=== PATIENT | male | born 1945 | race Caucasian/White ===

== ENCOUNTER → 2023-06-01 07:21 | Outpatient (REF) | payer MEDICARE, OTHER, SELFPAY | LOC: RAD 07:21 | PROVIDERS: ATTENDING PHYSICIAN Family Medicine | DX: S16.1XXA Strain of muscle, fascia and tendon at neck level, initial encounter (principal) | CPT/HCPCS: 72050 ==

== ENCOUNTER 2023-08-17 06:39 | Day surgery (SDC) | payer MEDICARE, OTHER, SELFPAY ==
[2023-08-17 10:12] VITALS: BP 146/71; BMI 31.2
[2023-08-17] MEDS: TYLENOL 1000 MG PO (10:32)
[2023-08-17] MEDS: NORMOSOL-R 1000 IV (10:33)
[2023-08-17 12:13] VITALS: BP 121/92
[2023-08-17 12:15] VITALS: BP 114/73
--- NOTE | 2023-08-17 12:17 | W.IMMPOSTOP ---
Surgical Immed Post Op Note
-
Primary Surgeon: Kael Montgomery MD
Assisting Surgeon: None
Pre-op Diagnosis: Sebaceous cyst, left back
Post-op Diagnosis: Infected sebaceous cyst, left back
Procedure Performed: Excision of a sebaceous cyst, left back
Anesthesia Type: General
Specimen / Cultures:
1. Sebaceous cyst
2. Cyst fluid/abscess for Gram stain and culture.
Estimated Blood Loss: 1 cc
Complications: None
Operative Findings: 2 x 2 x 2 cm sebaceous cyst of the left back identified and removed entirely. Part of the capsule was violated with some notable pus that was cultured. The wound was copiously irrigated and closed in layers. The skin was
closed with Steri-Strips and covered with a nonocclusive dressing to allow for drainage.
--- NOTE | 2023-08-17 12:20 | OR.RPT ---
Operative Report
Operative Report
Patient Name: Xu Spencer
: 1945
Date of Operation: 08/17/2023
Preoperative Diagnosis: Sebaceous cyst of the left back
Postoperative Diagnosis: Infected sebaceous cyst of the left back
Procedure(s):
Excision of left back sebaceous cyst
Surgeon(s):
Dr. Montgomery
Assistant Hairstylist(s):
MARLEE Conley
Anesthesia: MAC
Estimated Blood Loss: 1 cc
Urine Output: None
Drains/Lines/Implants: None
Specimens:
1. Sebaceous cysts.
2. Cyst fluid/abscess for Gram stain and culture.
Indication for surgery:
This is a 78-year-old male with a lump on his back that he is known for several years. After evaluation in the office he was diagnosed with a sebaceous cyst. After discussion of risk benefits and alternatives he elected and was consented for
surgery.
Operative Findings: 2 x 2 x 2 cm sebaceous cyst of the left back identified and removed entirely. Part of the capsule was violated with some notable pus that was cultured. The wound was copiously irrigated and closed in layers. The skin was
closed with Steri-Strips and covered with a nonocclusive dressing to allow for drainage.
Details of the operation:
The patient was brought to the operating room a placed in the prone position. After appropriate sedation by anesthesia, the area of the back was prepped and draped in the usual fashion. An elliptical incision over natural skin lines was made over
the mass and carried down through the subcutaneous tissue. The cyst was freed circumferentially from the surrounding tissue. Part of the capsule was violated with some spillage of purulent appearing fluid. This was cultured. The specimen
measured roughly 2 x 2 x 2 cm and extended to Calderon's fascia. The final wound dimensions were roughly 3.5 x 2 x 2 cm. The wound was copiously irrigated and due to the possible contamination, we had anesthesia administer 2 g of IV Ancef. The
wound was then closed in layers with 3-0 Vicryl's starting with the Calderon layer, then deep dermals followed by interrupted subdermals. The wound was then dressed with Steri-Strips followed by a 4 x 4 and paper tape. All counts were correct at the
end of procedure. The patient was then transferred to the PACU for recovery.
I was the attending physician and performed the procedure with assistance from the DISPATCHER CHIEF OIL above. I was present for all portions of the case
Kael Montgomery MD
[2023-08-17 12:30] VITALS: BP 124/93
[2023-08-17 12:54] VITALS: BP 122/68
--- NOTE | 2023-08-23 17:11 | W.SUR.PREOP ---
Pre-Operative Surgical Note
-
I have examined this patient prior to the performance of the scheduled procedure.
The patient's condition is unchanged from the time of the current History and
Physical and the patient is able to undergo the scheduled procedure.
== END 2023-08-17 13:13 | disposition home or self-care (01) ==
LOC: SDS 06:39
PROVIDERS: ATTENDING PHYSICIAN Surgery
DX: L72.3 Sebaceous cyst (principal)
CPT/HCPCS: 11404; 12032; 88304; 87070; 87075; 87147; 87205

== ENCOUNTER → 2024-06-07 14:13 | Outpatient (REF) | payer MEDICARE, OTHER, SELFPAY ==
[2024-06-07 14:52] LABS: % Basophils 0.5 % (0-2); % Immature Granulocytes 0.3 % (0-0.5); % Lymphocytes 28.7 % (20.5-51.1); % Monocytes 10.3 % (1.7-9.3); % Neutrophils 59.2 % (42.2-75.2); Absolute Eosinophils 0.1 10^3/uL (0-0.7); Absolute Lymphocytes 2.2 10^3/uL (1.2-3.4); Absolute Monocytes 0.8 10^3/uL (0.1-0.6); Absolute Neutrophils 4.6 10^3/uL (1.4-6.5); Hematocrit 43.4 % (39.0-52.0); Hemoglobin 14.5 g/dL (13.0-18.0); Mean Corp Hgb Conc. 33.4 g/dL (33.0-37.0); Mean Corpuscular Hgb 32.2 pg (27.0-31.0); Mean Corpuscular Volume 96.2 fL (80.0-94.0); Mean Platelet Volume 8.9 fL (7.4-10.4); Nucleated Red Blood Cells % 0 % (-); Platelet Count 221 10^3/uL (130-400); Red Blood Cell Count 4.51 10^6/uL (4.70-6.10); Red Cell Dist. Width 13.6 % (11.5-14.5); White Blood Cell Count 7.8 10^3/uL (4.8-10.8)
[2024-06-07 15:17] LABS: ALT (SGPT) 50 U/L (0-50); AST (SGOT) 30 U/L (17-59); Albumin 3.9 g/dl (3.5-5.0); Alkaline Phosphatase 85 U/L (38-126); Blood Urea Nitrogen 9 mg/dl (9-20); Calcium 9.2 mg/dl (8.4-10.2); Carbon Dioxide 29 mmol/L (22-30); Chloride 105 mmol/L (98-107); Glucose 88 mg/dl (70-99); Potassium 4.4 mmol/L (3.5-5.1); Sodium 140 mmol/L (135-145); Total Bilirubin 0.6 mg/dl (0.2-1.3); Total Protein 6.7 g/dl (6.3-8.2); eGFR > 60.00
== END ==
LOC: RAD 14:13
PROVIDERS: ATTENDING PHYSICIAN Hospitalist
DX: R10.12 Left upper quadrant pain (principal)
CPT/HCPCS: 36415; 74177; 80053; 85025; Q9967

== ENCOUNTER → 2024-12-11 12:31 | Outpatient (REF) | payer MEDICARE, OTHER, SELFPAY | LOC: RAD 12:31 | PROVIDERS: ATTENDING PHYSICIAN Hospitalist | DX: R31.29 Other microscopic hematuria (principal) | CPT/HCPCS: 76770 ==

== ENCOUNTER → 2025-01-21 08:40 | Outpatient (REF) | payer MEDICARE, OTHER, SELFPAY ==
[2025-01-21 09:40] LABS: Blood Urea Nitrogen 11 mg/dl (9-20); Calcium 10.0 mg/dl (8.4-10.2); Carbon Dioxide 32 mmol/L (22-30); Chloride 106 mmol/L (98-107); Glucose 100 mg/dl (70-99); Potassium 4.3 mmol/L (3.5-5.1); Sodium 143 mmol/L (135-145); eGFR > 60.00
== END ==
LOC: REG 08:40
PROVIDERS: ATTENDING PHYSICIAN Urology; FAMILY PHYSICIAN Hospitalist
DX: N40.1 Benign prostatic hyperplasia with lower urinary tract symptoms (principal); Z01.818 Encounter for other preprocedural examination
CPT/HCPCS: 36415; 80048

== ENCOUNTER → 2025-01-28 06:58 | Outpatient (REF) | payer MEDICARE, OTHER, SELFPAY | LOC: MRI 3T 06:58 | PROVIDERS: ATTENDING PHYSICIAN Urology; FAMILY PHYSICIAN Hospitalist | DX: M54.2 Cervicalgia (principal); N40.1 Benign prostatic hyperplasia with lower urinary tract symptoms | CPT/HCPCS: 72141; 74178; Q9967 ==

== ENCOUNTER 2025-03-10 20:34 | Emergency (ER) | payer MEDICARE, OTHER, SELFPAY ==
[2025-03-10 20:37] VITALS: BP 150/82
[2025-03-10 22:00] VITALS: BMI 30.6
[2025-03-10 22:06] VITALS: BP 133/79
--- NOTE | 2025-03-10 22:35 | ED.GENMED ---
History of Present Illness
General
Chief Complaint: Head Injury
Source: patient and spouse
Time Seen by Provider: 03/10/25 21:57
History of Present Illness
History of Present Illness:
79-year-old male presents to the emergency room from MRI where he he had an MRI of the brain which was abnormal. He was referred to the emergency room because the study showed 'fluid collections'. Patient states he has been feeling unwell since a
fall back in October when he was playing pickle ball. He fell on his right side. He did strike his head. He does take Coumadin. After the fall he noted some pain behind his right eye and some subtle balance problems. He feels like he veers off
to the left which is not obvious to his spouse. However when he began again playing pickle ball again he noted that he kept falling forward and had balance issues. Patient takes Coumadin because he had 'TIAs' in the late . He has been on
Coumadin ever since. He has had some difficulty maintaining a therapeutic INR recently resulting in frequent dosage adjustments. He denies having a headache. He denies any nausea or vomiting. He is tolerating oral intake.
Phy Exam
Physical Exam
Physical Exam:
General: Awake, Alert, Oriented X3. No acute distress.
Vitals: unremarkable
Head: Atraumatic
Eyes: Pupils equal, EOMI
Throat: Airway intact, no exudates
Neck: Trachea midline
Lungs: Clear and equal b/l
Heart: Regular rate, no murmurs
Abd: Soft, Nontender, No pulsatile mass
Neuro: Cranial nerves intact, muscle strength equal bilaterally, cerebellar exam normal
Skin: Warm, dry, no rash
Extremities: pulses equal b/l, no edema
Course
Orders/Labs/Results
Orders:
Orders
03/10/25 22:44
Type+Screen Urgent
Basic Metabolic Panel Urgent
Complete Blood Count/With Diff Urgent
Prothrombin Time Urgent
Abnormal Lab Results
03/10/25
22:44
RBC 4.53 L 10^6/uL
(4.70-6.10)
MCH 31.3 H pg
(27.0-31.0)
Absolute Monos (auto) 0.7 H 10^3/uL
(0.1-0.6)
Monocytes % 10.6 H %
(1.7-9.3)
PT 26.4 H Sec
(11.4-14.6)
Glucose 101 H mg/dl
(70-99)
03/10/25 22:44
03/10/25 22:44
Vital Signs
Initial and Last Documented VS:
Initial Vital Signs
Temp Pulse Resp BP Pulse Ox
97.4 F 86 20 150/82 97
03/10/25 20:37 03/10/25 20:37 03/10/25 20:37 03/10/25 20:37 03/10/25 20:37
Last Documented Vital Signs
Temp Pulse Resp BP Pulse Ox
97.4 F 69 17 136/77 97
03/10/25 20:37 03/11/25 03:15 03/11/25 03:15 03/11/25 03:00 03/11/25 03:15
MDM/Problems Addressed
Differential Diagnosis Includes:
Subdural, of CVA, electrolyte abnormality
MDM/Problems Addressed:
Patient brought to the emergency room after having an outpatient MRI performed. MRI shows bilateral subdurals. There is mass effect. The subdurals appear to have chronic as well as subacute components. Patient does take Coumadin. INR is 2.1.
Discussed patient's presentation with Dr. Faye Gross who is on-call for neurosurgery. She recommends transfer to [place]. She does not recommend anticoagulation reversal at this time. Patient remained awake and alert and nonfocal hearing in the
emergency room. Patient was accepted in transfer to [place] under the trauma service, Dr. Zacarias.
*Radiology
Radiology exam reviewed: radiology read reviewed
*Pulse Oximetry
SaO2: 94
Oxygen Mode of Delivery: Room air
Patient hypoxic: no
*Critical Care Note
Total Time (30-74mins, 75-104mins- exclusive of procedures): 33 min
comment:
Critical care statement: A total of 33 minutes of critical care time was provided for this patient. This includes management of unstable vital signs, evaluation of the patient at bedside, reviewing the patient�s pertinent medical records, discussion
with consultants, review of old EKGs and review of pertinent medical records. This time with separate from time utilized to perform the aforementioned documented procedures
ED Attending Note
-
Portions of this chart may have been created with voice recognition software.� Occasional wrong word or��sound alike� substitutions may have occurred due to the inherent limitations of voice recognition software.
Discharge Plan
Departure
Patient Disposition: [facility]
Date of Disposition: 03/11/25
Time of Disposition: 00:40
Condition: Fair
Discharge Problem:
Subdural hematoma
Prescriptions:
No Action
atorvastatin 40 mg Tablet
40 mg PO QPM
tamsulosin 0.4 mg Capsule
0.4 mg PO DAILY
warfarin 5 mg Tablet
5 mg PO SUMOTUWETHSA
fluticasone propionate [Flonase Allergy Relief] 50 mcg/actuation [place],Suspension
1 spray INTRANASAL PRN PRN (Reason: nasal congestion)
acetaminophen [Tylenol Extra Strength] 500 mg Tablet
500 mg PO Q6H PRN (Reason: pain)
hogmpjgasgcb-ocnlnjee-ihjwti Tablet
1 tab PO DAILY
cholecalciferol (vitamin D3) [Vitamin D3] 25 mcg (1,000 unit) Tablet
25 mcg PO DAILY
PreserVision AREDS-2 250-90-40-1 mg Capsule
1 tab PO DAILY
Move Free Joint Health 750 mg-100 mg- 1.65 mg-108 mg Tablet
1 tab PO DAILY
amoxicillin-pot clavulanate 875-125 mg tablet
1 tab PO Q12 Qty: 8 0RF
Referrals:
Leena Romero MD [Family Provider, Internal Medicine]
Hospital Transfer
Other hospital: [facility]
I certify that the patient requires transfer: Yes
Discussed case with accepting physician: Dr. Frias
Reason for transfer: specialties available
Interventions
Interventions:
*General Assessment Last Done: 03/10/25 22:02
*Neglect/Abuse Screening Last Done: 03/10/25 20:37
*ED COVID-19 Vaccine History Last Done: 03/10/25 22:02
*ED Influenza Vaccine History Last Done: 03/10/25 22:02
[facility] Fall Risk Assessment Tool Last Done: 03/10/25 22:01
*Risk Screen - Suicide (C-SSRS) Last Done: 03/10/25 20:37
*Nursing Disposition Last Done: 03/11/25 03:59
ED- Neurological Assessment Last Done: 03/10/25 22:06
ED-Skin Assessment Last Done: 03/10/25 22:06
Discharge Date and Time
Discharge Date/Time: 03/11/25 04:00
Print Language: BELGIAN
[2025-03-10 23:01] LABS: Hematocrit 42.1 % (39.0-52.0); Hemoglobin 14.2 g/dL (13.0-18.0); Mean Corp Hgb Conc. 33.7 g/dL (33.0-37.0); Mean Corpuscular Volume 92.9 fL (80.0-94.0); Nucleated Red Blood Cells % 0 % (-); Platelet Count 217 10^3/uL (130-400); Red Cell Dist. Width 13.0 % (11.5-14.5)
[2025-03-10 23:06] LABS: INR 2.41; PT 26.4 Sec (11.4-14.6)
[2025-03-10 23:24] LABS: Blood Urea Nitrogen 9 mg/dl (9-20); Calcium 9.4 mg/dl (8.4-10.2); Carbon Dioxide 28 mmol/L (22-30); Chloride 106 mmol/L (98-107); Estimated Creatinine Clearance 87 ml/min; Glucose 101 mg/dl (70-99); Potassium 3.7 mmol/L (3.5-5.1); Sodium 138 mmol/L (135-145); eGFR > 60.00
[2025-03-10 23:45] VITALS: BP 148/82
[2025-03-11 00:27] VITALS: BP 168/87
[2025-03-11 01:00] VITALS: BP 155/82
[2025-03-11 02:00] VITALS: BP 126/72
[2025-03-11 03:00] VITALS: BP 136/77
== END 2025-03-11 04:00 | disposition short-term general hospital (02) ==
LOC: EMR 20:34
PROVIDERS: EMERGENCY PHYSICIAN Emergency Medicine; FAMILY PHYSICIAN Hospitalist
DX: S06.5XAA Traumatic subdural hemorrhage with loss of consciousness status unknown, initial encounter (principal); W19.XXXA Unspecified fall, initial encounter; Z86.73 Personal history of transient ischemic attack (TIA), and cerebral infarction without residual deficits; Z79.01 Long term (current) use of anticoagulants
CPT/HCPCS: 99291; 70553; 80048; 85025; 85610; 86850; 86900; 86901; A9575

== ENCOUNTER 2025-03-22 19:02 | Observation (INO) | payer MEDICARE, OTHER, SELFPAY ==
[2025-03-22 13:53] VITALS: BP 166/81
[2025-03-22 14:23] LABS: Hematocrit 40.9 % (39.0-52.0); Hemoglobin 14.0 g/dL (13.0-18.0); Mean Corp Hgb Conc. 34.2 g/dL (33.0-37.0); Mean Corpuscular Volume 94.5 fL (80.0-94.0); Nucleated Red Blood Cells % 0 % (-); Platelet Count 283 10^3/uL (130-400); Red Cell Dist. Width 12.6 % (11.5-14.5)
[2025-03-22 14:35] LABS: INR 1.00; PT 13.3 Sec (11.4-14.6)
[2025-03-22 14:36] LABS: APTT 28.0 Sec (23.4-35.0)
[2025-03-22 14:52] LABS: Troponin I < 0.012 ng/ml
[2025-03-22 14:54] LABS: Blood Urea Nitrogen 10 mg/dl (9-20); Calcium 9.6 mg/dl (8.4-10.2); Carbon Dioxide 27 mmol/L (22-30); Chloride 105 mmol/L (98-107); Glucose 121 mg/dl (70-99); Sodium 140 mmol/L (135-145); eGFR > 60.00
[2025-03-22 17:00] VITALS: BP 158/84
--- NOTE | 2025-03-22 17:14 | ED.GENMED ---
History of Present Illness
General
Chief Complaint: Weakness
Source: patient and family
Time Seen by Provider: 03/22/25 14:01
History of Present Illness
History of Present Illness:
Note:
CHIEF COMPLAINT(S)
Loss of motor function in the left hand.
HISTORY OF PRESENT ILLNESS
The patient is a male who experienced a sudden loss of motor function in his left hand approximately 45 minutes prior to the encounter, around 12:30 PM, while watching television. Initially, he was unable to picker packer a napkin or clean his glasses,
reporting a complete inability to move his left hand. However, by the time of evaluation, he regained movement and reported feeling normal. The patient described picking up scissors and a phone as challenging during the episode but has since
returned to baseline function. Son states that he also noticed that the patient was using his hand when he came to evaluate him.
PAST MEDICAL AND SURGICAL HISTORY
The patient has a history of brain surgery for bleeding, affecting both sides. He was previously on warfarin (Coumadin) due to a past mini-stroke event, for which the etiology was unknown, but aimed at preventing future strokes. It is unclear,
however, why he discontinued the medication.
PHYSICAL EXAM
General: Alert, no acute distress.
Skin: Warm, dry.
Head: Normocephalic, atraumatic.
Neck: Supple, trachea midline.
Eye Ears, Nose, Mouth and Throat: Oral mucosa moist.
Cardiovascular: Normal peripheral perfusion, No edema.
Respiratory: Respirations are non-labored.
Gastrointestinal: Abdomen nondistended.
Back: Normal range of motion, Normal alignment.
Musculoskeletal: Normal range of motion, normal strength.
Neurological: Alert and oriented to person, place, time, and situation, No focal neurological deficit observed. no pronator drift. normal finger to nose b/l. nl gait
Psychiatric: Cooperative, appropriate mood & affect.
Additional findings: Has healing surgical wounds in the parietal area of bilateral scalp region.
PLAN
1. Obtain a computed tomography (CT) scan to evaluate for potential complications post-surgery or evidence of a new stroke event.
DIFFERENTIAL DIAGNOSIS
The Differential Diagnosis includes, in no particular order and is not limited to:
1. Transient ischemic attack
2. Ischemic stroke
3. Hemorrhagic stroke
4. Recurrent intracranial hemorrhage
5. Post-surgical complication (e.g., hematoma)
6. Seizure with postictal paralysis
7. Migraine with aura
8. Peripheral nerve compression
9. Multiple sclerosis
10. Functional neurological disorder
Disposition:
SUMMARY OF ENCOUNTER
The patient, an 79-year-old male with a recent history of neurosurgery for bilateral subdural hematomas, presented with sudden clumsiness and weakness in the left upper extremity. These symptoms resolved by the time of evaluation. A CT scan of the
head was performed, revealing no acute hemorrhage, and was reviewed by neurosurgeon Dr. Patel, who noted no changes from recent post-operative imaging. Differential includes transient ischemic attack (TIA) versus focal seizure. Management included
administering levetiracetam and consultation with a hospitalist for admission due to the recent history and to allow for further neurological evaluation.
ASSESSMENT
The patients recent neurological event may have been a transient ischemic attack or a focal seizure. Given the recent neurosurgery and the nature of his symptoms, further evaluation is warranted.
EMERGENCY TREATMENTS ADMINISTERED
Levetiracetam 1 gram was administered, as recommended by Dr. Voss.
MANAGEMENT OF THE PATIENTS CARE WAS DISCUSSED WITH
Discussion of the case was held with Dr. Patel, a neurosurgeon, who reviewed the imaging and provided recommendations on the management. The case was also discussed with a hospitalist for further care coordination.
PLAN
The plan includes admission for further neurological evaluation and monitoring. Possible additional workup will be conducted if necessary to rule out any other potential complications or causes for the transient symptoms.
INDEPENDENT REVIEW OF LABS AND INTERPRETATION OF TESTS
- My independent review of CBC is normal.
- My independent review of CMP is normal.
- My independent review of troponin is negative.
INDEPENDENT INTERPRETATION OF IMAGING
- My independent interpretation of the CT head scan shows no acute hemorrhage, consistent with previous post-operative imaging findings.
MEDICATION RECONCILIATION
Levetiracetam 1 gram was administered during the visit.
MEDICAL DECISION MAKING
- Complexity of Data Reviewed: Chronic conditions affecting care include a history of brain surgery for bilateral subdural hematomas. Differential diagnoses considered include transient ischemic attack, ischemic stroke, hemorrhagic stroke, recurrent
intracranial hemorrhage, post-surgical complication, seizure with postictal paralysis, migraine with aura, peripheral nerve compression, multiple sclerosis, and functional neurological disorder.
- Data:
- Category 1: CT of the head was independently reviewed by the attending physician and discussed with Dr. Patel for comparison with recent post-operative imaging.
- Category 2: Discussion of management was conducted with Dr. Voss and the hospitalist for further management strategy.
DIAGNOSIS
- Transient ischemic attack (TIA), suspected - ICD-10 Code: G45.9
- Focal seizure, suspected - ICD-10 Code: G40.89
Phy Exam
Physical Exam
Physical Exam:
.
Course
Orders/Labs/Results
Orders:
Orders
03/22/25 14:15
Electrocardiogram (*1) Urgent
Reason for Study: Other
Other Reason for Exam: Possible Stroke
Cardiac Monitoring- Treatment ONCE
IV Insert/Care/Rem.- Treatment PRN
Vital Signs As Directed
Frequency: Other
Weight As Directed
Frequency: Once
Comment: ZERO STRETCHER SCALE FOR ACCURATE WEIGHT
03/22/25 14:16
CT Head W/o Iv Contrast Urgent
Comment:
Reason For Exam: TIA
EKG- Treatment ONCE
03/22/25 14:17
Complete Blood Count/With Diff Urgent
03/22/25 14:18
Basic Metabolic Panel Urgent
PTT Urgent
Prothrombin Time Urgent
Troponin I Urgent
03/22/25 17:14
Levetiracetam Injectable [Keppra] 1,000 mg IV NOW STA
Abnormal Lab Results
03/22/25 03/22/25
14:17 14:18
RBC 4.33 L 10^6/uL
(4.70-6.10)
MCV 94.5 H fL
(80.0-94.0)
MCH 32.3 H pg
(27.0-31.0)
Absolute Monos (auto) 0.9 H 10^3/uL
(0.1-0.6)
Monocytes % 11.8 H %
(1.7-9.3)
Glucose 121 H mg/dl
(70-99)
03/22/25 14:17
03/22/25 14:18
Vital Signs
Initial and Last Documented VS:
Initial Vital Signs
Temp Pulse Resp BP Pulse Ox
97.9 F 56 19 166/81 96
03/22/25 13:53 03/22/25 13:53 03/22/25 13:53 03/22/25 13:53 03/22/25 13:53
Last Documented Vital Signs
Temp Pulse Resp BP Pulse Ox
97.9 F 56 19 158/84 96
03/22/25 13:53 03/22/25 13:53 03/22/25 13:53 03/22/25 17:00 03/22/25 17:17
*Pulse Oximetry
SaO2: 96
Oxygen Mode of Delivery: Room air
Patient hypoxic: no
*Critical Care Note
Total Time (30-74mins, 75-104mins- exclusive of procedures): Not Applicable
ED Attending Note
-
Portions of this chart may have been created with voice recognition software.� Occasional wrong word or��sound alike� substitutions may have occurred due to the inherent limitations of voice recognition software.
Discharge Plan
Departure
Patient Disposition: Admit
Date of Disposition: 03/22/25
Time of Disposition: 17:14
Admit to: Telemetry
Presentation/result/management discussed w/ accepting MD/DO: Hospitalist
Discharge Problem:
TIA vs focal seizure
Prescriptions:
No Action
atorvastatin 40 mg Tablet
40 mg PO QPM
tamsulosin 0.4 mg Capsule
0.4 mg PO DAILY
warfarin 5 mg Tablet
5 mg PO SUMOTUWETHSA
fluticasone propionate [Flonase Allergy Relief] 50 mcg/actuation [place],Suspension
1 spray INTRANASAL PRN PRN (Reason: nasal congestion)
acetaminophen [Tylenol Extra Strength] 500 mg Tablet
500 mg PO Q6H PRN (Reason: pain)
qufptkupugvx-mjedvxcr-lvoktj Tablet
1 tab PO DAILY
cholecalciferol (vitamin D3) [Vitamin D3] 25 mcg (1,000 unit) Tablet
25 mcg PO DAILY
PreserVision AREDS-2 250-90-40-1 mg Capsule
1 tab PO DAILY
Move Free Joint Health 750 mg-100 mg- 1.65 mg-108 mg Tablet
1 tab PO DAILY
amoxicillin-pot clavulanate 875-125 mg tablet
1 tab PO Q12 Qty: 8 0RF
Referrals:
Leena Romero MD [Family Provider, Internal Medicine]
Interventions
Interventions:
*General Assessment Last Done: 03/22/25 13:52
*Neglect/Abuse Screening Last Done: 03/22/25 13:52
*ED COVID-19 Vaccine History Last Done: 03/22/25 13:52
*ED Influenza Vaccine History Last Done: 03/22/25 13:52
[facility] Fall Risk Assessment Tool Last Done: 03/22/25 14:19
*Risk Screen - Suicide (C-SSRS) Last Done: 03/22/25 13:52
ED- Cardiac Assessment Last Done: 03/22/25 15:00
ED- Neurological Assessment Last Done: 03/22/25 14:20
ED- Pulmonary Assessment Last Done: 03/22/25 14:21
Discharge Date and Time
Print Language: HONDURAN
--- NOTE | 2025-03-22 17:28 | HPS.HSE ---
Family Physician
-
Family Physician: Leena Romero MD
Chief Complaint
-
left hand weakness
History of Present Illness
Mr. Xu Spencer is a 79 yo man with hx TIA, HLD, ex-smoker, diagnosis of subdural hematoma 03/10 transferred to [facility] and s/p surgery 03/12 presents to the ER after a period of left hand weakness.
Patient describes he was sitting on his couch watching tv when he went to clean his glasses and couldn't perform the fine motor movements. He also dropped a napkin. He tested sensation with a sharp safety pin and denies feeling numb. He denies
his arm feeling heavy. He was not confused during this time. He has had some persistent word finding difficulty since SDH but it is improved.
He denies recent fevers/chills. No cough/congestion. No chest pain or shortness of breath. No nausea/vomiting. No LE swelling.
Medical History
Past Medical History
Past Medical History: Reports Other ( TIA, HLD, ex-smoker, diagnosis of subdural hematoma 03/10 transferred to [facility] and s/p surgery 03/12)
Past Surgical History: Reports Other (subdural hematoma evacuation 03/12; lacerated liver repair 1962)
Social History
Tobacco: Former Smoker
Alcohol: None
Family History
Family History: Not pertinent
Allergies / Home Medications
Allergies
Allergy/AdvReac Type Severity Reaction Status Date / Time
Influenza Virus Vaccines Allergy 'I feel Verified 08/14/23 11:15
ill'
Home Medications
atorvastatin 40 mg tablet 40 mg PO QPM 08/14/23
glucosam 750 mg-chondroi 100 mg-hyalur 1.65 mg-CF borate 108 mg tablet (Move Free Evogen) 1 tab PO QPM 08/14/23
tamsulosin 0.4 mg capsule 0.4 mg PO QPM 08/14/23
vit C 250 mg-vit E 90 mg-zinc 40 mg-copper 1 za-ldfrzu-rosmxs capsule (PreserVision AREDS-2) 1 tab PO QPM 08/14/23
acetaminophen 650 mg tablet,extended release 650 mg PO DAILYPRN PRN mild pain 03/22/25
polyethylene glycol 3350 17 gram oral powder packet 17 g PO DAILYPRN PRN constipation 03/22/25
therapeutic multivitamin 1 tab PO QPM 03/22/25
Allergies reflects when Allergies were last updated in [employer].
Home Medications with original date entered in [employer]
Allergy/Medication List:
Allergies
Allergy/AdvReac Type Severity Reaction Status Date / Time
Influenza Virus Vaccines Allergy 'I feel Verified 08/14/23 11:15
ill'
Home Medications
atorvastatin 40 mg tablet 40 mg PO QPM 08/14/23
glucosam 750 mg-chondroi 100 mg-hyalur 1.65 mg-CF borate 108 mg tablet ([facility]) 1 tab PO QPM 08/14/23
tamsulosin 0.4 mg capsule 0.4 mg PO QPM 08/14/23
vit C 250 mg-vit E 90 mg-zinc 40 mg-copper 1 ob-uycojy-jcxqwv capsule (PreserVision AREDS-2) 1 tab PO QPM 08/14/23
acetaminophen 650 mg tablet,extended release 650 mg PO DAILYPRN PRN mild pain 03/22/25
polyethylene glycol 3350 17 gram oral powder packet 17 g PO DAILYPRN PRN constipation 03/22/25
therapeutic multivitamin 1 tab PO QPM 03/22/25
Review of Systems
-
History Source: Patient
A 12 point ROS was completed and negative except as noted: Yes
Physical Exam
Vital Signs
Vital Signs
Temp Pulse Resp BP Pulse Ox
97.9 F 56 19 158/84 96
03/22/25 13:53 03/22/25 13:53 03/22/25 13:53 03/22/25 17:00 03/22/25 17:17
Physical Exam
General: No Apparent Distress and Conversant
HEENT: Other (right eye chronic change in iris appearance; pupils equal and reactive; EOMI)
Respiratory: Clear; No Wheezes
Cardiac: S1/S2 and Regular Rhythm
GI: Soft, Non Tender and Non Distended
Musculoskeletal: No Edema
Skin: Warm and Dry; No Rash
Neuro: AO x 3 and Other (possible slight pronator drift on left? 5/5 strength shoulder flexion and extension; wrist extension; alternating finger movements WNL; can lift b/l LE )
Psych: Calm
Laboratory Results
-
03/22/25 14:17
03/22/25 14:18
Laboratory Results
PT 13.3 Sec (11.4-14.6) 03/22/25 14:18
INR 1.00 03/22/25 14:18
APTT 28.0 Sec (23.4-35.0) 03/22/25 14:18
Total Bilirubin Cancelled 03/22/25 14:18
AST Cancelled 03/22/25 14:18
ALT Cancelled 03/22/25 14:18
Alkaline Phosphatase Cancelled 03/22/25 14:18
Troponin I < 0.012 ng/ml 03/22/25 14:18
Data Reviewed
-
Diagnostic Radiology: Report Reviewed by me
Lab Data: Labs Reviewed by me
Impression/Plan
-
Mr. uX Spencer is a 79 yo man with hx TIA, HLD, ex-smoker, diagnosis of subdural hematoma 03/10 transferred to [facility] and s/p bilateral estuardo holes 03/12 presents to the ER after a period of left hand weakness where he couldn't hold his napkin.
Triage VS: T 97.9, P 56, RR 19, BP 166/81, SpO2 96%
LABS: WBC 7.7, Hg 14, PLT 283, Na 140, CO2 27, Cr 0.7, Glucose 121, Trop < 0.012
INR 1.0
EKG: NSR, left axis deviation
HEAD CT
IMPRESSION:
Status post bilateral estuardo holes.
Relatively symmetric bilateral subacute subdural hematomas, as described, appearing smaller on the right, and relatively stable left.
Probable mild dural thickening along the inner table of the calvarium, as described, appearing of subtle increased attenuation. Subtle acute hemorrhagic component felt to be less likely, though not entirely excluded. Recommend short-term follow-up
CT to assess stability.
Very subtle local mass effect with compression along the cerebral cortex. Otherwise, no significant mass effect or midline shift.
No acute parenchymal hemorrhage or significant abnormal parenchymal attenuation.
Left Arm Weakness concern for TIA versus partial seizure
Hx Bilateral Subdural Hematoma s/p bilateral estuardo hole for evacuation 03/12/25
-case discussed with Dr. Patel, who reviewed films and states patient can be admitted here
-admit to telemetry, observation
-Aspirin 162mg PO x 1 now then 81mg PO QD (OK'd by Dr. Patel)
-continue TODDLER CAREGIVER Atorvastatin 40mg
-s/p 1G Keppra in ER, continue 500mg PO BID per Neurology
-EEG
-MRI Head; MRA Head/Neck
-TTE
-f/U Lipid Panel, A1c
-continue to hold Coumadin (patient without known diagnosis of afib)
-formal Neurology consult tomorrow
HLD - TODDLER CAREGIVER Statin
BPH - TODDLER CAREGIVER Flomax
DVT PPx - SCD
FULL CODE
[2025-03-22] MEDS: KEPPRA 1000 MG IV (18:07)
[2025-03-22] MEDS: LOW STRENGTH ASPIRIN 162 MG PO (18:08)
[2025-03-22 18:09] VITALS: BMI 31.9
[2025-03-22 19:11] VITALS: BP 149/72
[2025-03-22 20:00] VITALS: BP 149/80; BMI 30.4
--- NOTE | 2025-03-22 20:15 | PTCARENOTE ---
Received patient from ED at approx 1999. Patient ambulated with standby assistance from stretcher to bed. A+O x3. Oriented to room. Call arenas in place.
[2025-03-22] MEDS: FLOMAX 0.4 MG PO (21:19)
[2025-03-22] MEDS: LIPITOR 40 MG PO (21:20)
[2025-03-22 23:00] VITALS: BP 129/55
[2025-03-22 23:59] VITALS: BP 129/55
[2025-03-23] VITALS (8 sets, daily range): BP systolic 116–155; BP diastolic 62–85; PULSE 71
[2025-03-23 06:41] LABS: Blood Urea Nitrogen 8 mg/dl (9-20); Calcium 9.1 mg/dl (8.4-10.2); Carbon Dioxide 27 mmol/L (22-30); Chloride 107 mmol/L (98-107); Estimated Creatinine Clearance 86 ml/min; Glucose 105 mg/dl (70-99); HDL Cholesterol 48 mg/dl; LDL Cholesterol, Calculated 65 mg/dl; Magnesium 2.0 mg/dl (1.6-2.3); Potassium 4.0 mmol/L (3.5-5.1); Sodium 139 mmol/L (135-145); Very Low Density Lipoprotein 19 mg/dl (0-30); eGFR > 60.00
[2025-03-23] MEDS: LOW STRENGTH ASPIRIN 81 MG PO (07:39)
[2025-03-23] MEDS: KEPPRA 500 MG PO ×2 (07:39→20:23)
--- NOTE | 2025-03-23 09:12 | CON.NEURO4 ---
Addendum entered and electronically signed by Chris Ellison MD 03/23/25 16:37:
Continue aspirin 81 mg daily.
Continue Keppra 500 mg BID.
Original Note:
Consultation - Neurology 4
-
CONSULTING PHYSICIAN: Dr. Chris Ellison
REFERRING PHYSICIAN: Dr. Shira Li
DICTATED BY: Dr. Chris Ellison
DATE/TIME OF REQUEST: 03/23/2025
DATE/TIME OF CONSULTATION: 03/23/2025
Reason for Consultation: Left hand weakness
ASSESSMENT AND PLAN:
Mr. Xu Spencer is a 79 yo man with hx TIA, HLD, ex-smoker, diagnosis of bilateral subdural hematoma 03/10 transferred to [facility] and is s/p bilateral subdural hematoma evacuation on 03/12, who presented to the ER after a period of left hand
weakness for about 45 minutes. The patient states that he had a fall while playing pickle ball at the end of October while he was on Coumadin which he has been on for a long time, however, the patient says that the reason he has been on Coumadin is
not clear. He thinks that he had a TIA about 25 years ago and he was started on Coumadin to prevent stroke. The Coumadin was stopped prior to the surgery for bilateral subdural hematoma on 03/12. The patient does not have history of atrial
fibrillation. The patient says that around noon yesterday, while watching TV he tried to clean his glasses with a napkin, but he was unable to do it and the napkin fell down. He tested the sensation in the left hand at that time with a safety pin
and he denied feeling numb. His symptoms lasted about 45 minutes and by the time he reached the ER, his symptoms are resolved.
Etiology of patient's transient left hand weakness could be secondary to a focal seizure versus transient transient ischemic attack. He is status post bilateral subdural hematoma evacuation recently on 03 12. the plan is to get an EEG. Will hold
getting an MRI of the brain at this time, as it will not change the management, also MRI of the brain was done recently when he presented to the ED on 03/10 prior to bilateral subdural hematoma evacuation (the report of this MRI is as given below).
The plan is also to get an echocardiogram. Also the patient will be given a Holter monitor at time of discharge as part of the workup for possible transient ischemic attack, because as per patient, he has been on Coumadin for about 25 years with a
concern for a transient ischemic attack, however there is no definite history of atrial fibrillation available. No antiplatelet at this time because of recent bilateral subdural hematoma evacuation on 03/12.
Discussed with Dr. Shira Li.
CT head (03/22/2025):
Relatively symmetric bilateral subacute subdural hematomas appearing smaller on the right, and relatively stable left.
Very subtle local mass effect with compression along the cerebral cortex.
No acute parenchymal hemorrhage or significant abnormal parenchymal attenuation.
MRI brain (03/10/2025):
Bilateral heterogeneous holohemispheric subdural hematomas which are likely subacute on chronic which measure up to 2.0 cm on the right and 1.1 cm on the left. There is associated local mass effect, more pronounced on the right with underlying
sulcal effacement. There is associated diffuse supratentorial dural thickening and enhancement which may be reactive, however can also be seen in the setting of intracranial hypotension as well as infectious and neoplastic processes.
History of Present Illness:
Mr. Xu Spencer is a 79 yo man with hx TIA, HLD, ex-smoker, diagnosis of bilateral subdural hematoma 03/10 transferred to [facility] and is s/p bilateral subdural hematoma evacuation on 03/12, who presented to the ER after a period of left hand
weakness for about 45 minutes. The patient states that he had a fall while playing pickle ball at the end of October while he was on Coumadin which he has been on for a long time, however, the patient says that the reason he has been on Coumadin is
not clear. He thinks that he had a TIA about 25 years ago and he was started on Coumadin to prevent stroke. The Coumadin was stopped prior to the surgery for bilateral subdural hematoma on 03/12. The patient does not have history of atrial
fibrillation. The patient says that around noon yesterday, while watching TV he tried to clean his glasses with a napkin, but he was unable to do it and the napkin fell down. He tested the sensation in the left hand at the time with a safety pin
and he denied feeling numb. His symptoms lasted about 45 minutes and by the time he reached the ER, his symptoms are resolved.
Past Medical History:
TIA, HLD, ex-smoker, diagnosis of subdural hematoma 03/10 transferred to [facility] and s/p surgery 03/12
Surgical History:
Subdural hematoma evacuation 03/12
Family History:
Not pertinent
Social History:
Former smoker
Review of Systems:
The 10 point review systems were negative aside from as given the above history of present illness.
Neurologic examination:
Alert and oriented x 3, the patient knows age and the month of the year
Speech is clear
The cranial nerves II to XII grossly intact
The visual michael are grossly intact to confrontation bilaterally
The motor strength is grossly 5/5 bilaterally in upper and lower extremities
The sensations are grossly intact
There is no limb ataxia seen
Vital Signs and Labs
-
Vital Signs and Labs:
Vital Signs
Temp Pulse Resp BP Pulse Ox
36.4 C 74 16 148/76 95
03/23/25 07:39 03/23/25 07:39 03/23/25 07:39 03/23/25 07:39 03/23/25 07:39
Lab Results
03/22/25 14:17
03/23/25 05:53
PT 13.3 Sec (11.4-14.6) 03/22/25 14:18
INR 1.00 03/22/25 14:18
APTT 28.0 Sec (23.4-35.0) 03/22/25 14:18
Sodium 139 mmol/L (135-145) 03/23/25 05:53
Potassium 4.0 mmol/L (3.5-5.1) 03/23/25 05:53
BUN 8 mg/dl (9-20) L 03/23/25 05:53
Glucose 105 mg/dl (70-99) H 03/23/25 05:53
Calcium 9.1 mg/dl (8.4-10.2) 03/23/25 05:53
LDL Cholesterol, Calc 65 mg/dl 03/23/25 05:53
Medications
-
Active Medications
Generic Name Dose Route Start Last Admin
Trade Name Freq PRN Reason Stop Dose Admin
Acetaminophen 650 mg 03/22/25 20:14
Acetaminophen 325 Mg Tablet PO 04/19/25 20:13
Q4HPRN PRN
CATALAN, mild pain, or temp >100.4F
Aspirin 81 mg 03/23/25 08:00 03/23/25 07:39
Aspirin 81 Mg Chewable Tablet PO 04/20/25 07:59 81 mg
DAILY JOSÉ MANUEL Administration
Atorvastatin Calcium 40 mg 03/22/25 20:14 03/22/25 21:20
Atorvastatin (Lipitor) 40 Mg Tablet PO 04/19/25 20:13 40 mg
QPM JOSÉ MANUEL Administration
Levetiracetam 500 mg 03/23/25 08:00 03/23/25 07:39
Levetiracetam 500 Mg Regular Release Tablet PO 04/20/25 07:59 500 mg
BID JOSÉ MANUEL Administration
Polyethylene Glycol 17 grams 03/22/25 20:14
Polyethylene Glycol Powder 17 Grams Packet PO 04/19/25 20:13
DAILYPRN PRN
constipation
Tamsulosin HCl 0.4 mg 03/22/25 20:14 03/22/25 21:19
Tamsulosin 0.4 Mg Capsule PO 04/19/25 20:13 0.4 mg
QPM JOSÉ MANUEL Administration
Home Medications
�Medication �Instructions �Recorded
atorvastatin 40 mg tablet 40 mg PO QPM 08/14/23
glucosam 750 mg-chondroi 100 1 tab PO DAILY 08/14/23
mg-hyalur 1.65 mg-CF borate 108 mg
tablet (Move Free [employer])
tamsulosin 0.4 mg capsule 0.4 mg PO QPM 08/14/23
vit C 250 mg-vit E 90 mg-zinc 40 1 tab PO QPM 08/14/23
mg-copper 1 [id number]
capsule (PreserVision AREDS-2)
Centrum Silver Men 1 tab PO DAILY 03/22/25
acetaminophen 650 mg 650 mg PO DAILYPRN PRN mild pain 03/22/25
tablet,extended release
polyethylene glycol 3350 17 gram 17 g PO DAILYPRN PRN constipation 03/22/25
oral powder packet
therapeutic multivitamin 1 tab PO QPM 03/22/25
[2025-03-23 10:47] LABS: Glycohemoglobin (HgbA1c) 6.0 % (4.0-5.9)
--- NOTE | 2025-03-23 11:19 | W.PN.HOSP.TC ---
Today's Communication/Plan
-
MRI/MRA
patient agreeable to stay for TTE, EEG tomorrow
Assessment / Plan
Assessment / Plan
Mr. Xu Spencer is a 79 yo man with hx TIA, HLD, ex-smoker, diagnosis of subdural hematoma 03/10 transferred to [facility] and s/p bilateral estuardo holes 03/12 presents to the ER after a period of left hand weakness where he couldn't hold his napkin.
HEAD CT
IMPRESSION:
Status post bilateral estuardo holes.
Relatively symmetric bilateral subacute subdural hematomas, as described, appearing smaller on the right, and relatively stable left.
Probable mild dural thickening along the inner table of the calvarium, as described, appearing of subtle increased attenuation. Subtle acute hemorrhagic component felt to be less likely, though not entirely excluded. Recommend short-term follow-up
CT to assess stability.
Very subtle local mass effect with compression along the cerebral cortex. Otherwise, no significant mass effect or midline shift.
No acute parenchymal hemorrhage or significant abnormal parenchymal attenuation.
Left Arm Weakness concern for TIA versus partial seizure
Hx Bilateral Subdural Hematoma s/p bilateral estuardo hole for evacuation 03/12/25
Hx TIA's 's started on Coumadin (without known diagnosis of atrial fibrillation)
-case discussed with Dr. Patel, who reviewed films and states patient can be admitted here
-admitted to telemetry, observation
-s/p Aspirin 162mg PO x 1, continue 81mg PO QD (OK'd by Dr. Patel)
-continue [employer] Atorvastatin 40mg
-s/p 1G Keppra in ER, continue 500mg PO BID per Neurology
-EEG ordered
-MRI Head; MRA Head/Neck
-TTE
-f/U Lipid Panel, A1c
-continue to hold Coumadin (patient without known diagnosis of afib)
-appreciate Neurology consult
-team to contact Cardiology tomorrow to set up outpatient cardiac monitoring to clarify if Coumadin should be resumed (versus NOAC). Patient denies known history of afib
-neuro checks
-PT/OT/ST
HLD - [employer] Statin
BPH - [employer] Flomax
DVT PPx - SCD
FULL CODE
Anticipated Discharge: 24 - 48 hours
Subjective/Interval History
-
Date of Service: March 23, 2025
no new events overnight
no further left arm weakness
was hoping to leave today
Objective Data
-
Labs:
Laboratory Results
03/23/25
05:53
Sodium 139
Potassium 4.0
Chloride 107
Carbon Dioxide 27
BUN 8 L
Creatinine 0.7
Glucose 105 H
Calcium 9.1
Vital Signs:
Vital Signs
Temp Pulse Resp BP Pulse Ox
97.6 F 74 16 148/76 95
03/23/25 07:39 03/23/25 07:39 03/23/25 07:39 03/23/25 07:39 03/23/25 07:39
I&O
03/22/25 03/23/25 03/24/25
06:59 06:59 06:59
Intake Total 480 / 480
Balance 480 / 480
Review of Systems
-
History Source: Patient
All other systems: Reviewed and negative
Physical Exam
-
General: No Apparent Distress
HEENT: PERRLA
Respiratory: Clear to Auscultation; Negative Wheezes
Cardiac: Regular Rhythm and S1/S2
GI: Soft and Nontender
Musculoskeletal: No Edema
Skin: Warm and Dry; Negative Rash
Neuro: AO x 3 and Nonfocal/Grossly Intact
Psych: Calm
Data Reviewed
-
Diagnostic Radiology: Report Reviewed by me
Labs: Labs Reviewed by me
--- NOTE | 2025-03-23 12:07 | PTOTSP ---
ST Acute Care Evaluation
Pt currently presents with oral, pharyngeal, and esophageal swallowing parameters that are WFL per bedside assessment. No overt s/s of penetration or aspiration noted at bedside. Cannot rule out silent aspiration at bedside. No skilled dysphagia
services indicated at this time.
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
short-term recall. Additionally, pt frequently exhibited impulsivity with his responses with fairly good insight into his deficits, as he often tried to check his work and correct his errors when he could. Unfortunately, however, pt would frequently
give up on tasks and/or lose track of where he was in a task, requiring him to start from the beginning on multiple occasions for longer tasks that built upon one another (executive functioning tasks - alternating attention/working memory). Pt would
benefit from continued CHARACTER ACTOR services (while admitted and after discharge) to learn more about strategies he can use to regulate himself and compensate for these deficits to remain as independent as possible and reduce any errors made and/or any
frustration he may experience completing ADLs and participating in his preferred daily activities.
Pt's current cognitive linguistic presentation DOES NOT appear to be acute in nature (i.e., relation to pt's current symptoms) nor in relation to pt's recent SDH s/p subsequent estuardo hole evacuation, as pt and his report pt's difficulties
described have been present even prior to pt's dx SDH.
Recommendations:
- Continue with regular solids, thin liquids, meds as tolerated with general aspiration precautions.
- No skilled dysphagia tx indicated at this time.
- Continue with cognitive linguistic tx while admitted.
- Continue with cognitive linguistic tx upon discharge at the home health or OP level of care - please provide RX upon discharge.
- Consider neuropsych evaluation after discharge.
--- NOTE | 2025-03-23 15:33 | CON.NS ---
Consultation
-
Date/Time Consultation Performed: 03/23/2025; 15:30
Performing Provider: Amanda
Chief Complaint
History of Present Illness
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 He had initially presented after outpatient imaging had been performed for some
balance issues demonstrated bilateral subdural hematomas, with brain compression. He underwent surgery on 03/12/2025 without any complication. Preoperatively he was on Coumadin, this was held, and reversed. There is an unclear history as to why
the patient was on Coumadin, according to the patient's . He has a history of having 'mini strokes, and possible blood clots in the legs in the past, and due to recent change in PCPs, was unclear as to whether or not the Coumadin needed to be
continued versus not. Nevertheless, given his recent bilateral bur hole evacuation, I ultimately advised that the patient should hold off on any therapeutic anticoagulation for approximately 2 weeks, until he had follow-up imaging studies have
demonstrated stability of his subdural collections postoperatively. Preoperative symptoms consisted primarily of balance issues, as well as intermittent word finding difficulty.
He presents now with episode of left hand weakness. Patient reports episode as he was sitting on a couch, and when he went to clean his glasses, he could not perform the fine motor movements, and dropped and napkin. He also reported numbness in
the left hand.
Patient seen and examined. present for encounter. Patient reports that he had episode, lasting several minutes, but not longer than an hour with clumsiness and numbness of his left hand/fingers. Hand sensation and strength has returned to
normal. This was not associated with any headache, or droopiness of the face, or leg
He did take Keppra for approximately 7 days postoperatively, and this was then stopped
Review of Systems
-
10 point review systems performed which included constitutional, ENT, cardiovascular, respiratory, GI, , neurologic, neurologic, musculoskeletal, hematologic, was performed, and was negative except for as stated in HPI.
Medication and Allergies
Home Medications
Home Medications
�Medication �Instructions �Recorded
atorvastatin 40 mg tablet 40 mg PO QPM 08/14/23
glucosam 750 mg-chondroi 100 1 tab PO DAILY 08/14/23
mg-hyalur 1.65 mg-CF borate 108 mg
tablet (Move Free [employer])
tamsulosin 0.4 mg capsule 0.4 mg PO QPM 08/14/23
vit C 250 mg-vit E 90 mg-zinc 40 1 tab PO QPM 08/14/23
mg-copper 1 [id number]
capsule (PreserVision AREDS-2)
Centrum Silver Men 1 tab PO DAILY 03/22/25
acetaminophen 650 mg 650 mg PO DAILYPRN PRN mild pain 03/22/25
tablet,extended release
polyethylene glycol 3350 17 gram 17 g PO DAILYPRN PRN constipation 03/22/25
oral powder packet
therapeutic multivitamin 1 tab PO QPM 03/22/25
Allergies
Allergies
Allergy/AdvReac Type Severity Reaction Status Date / Time
Influenza Virus Vaccines Allergy 'I feel Verified 08/14/23 11:15
ill'
Physical Exam
-
Exam:
Awake, alert, no apparent distress
Bilateral cranial incisions are healing well, with Monocryl sutures intact, no evidence of erythema, edema, or fluctuant
Cranial nerves II through XII are grossly intact
Speech is fluent, comprehension is intact, repetition is normal
Motor: 5/5 strength bilaterally in upper and lower extremities with no evidence of pronator drift
Noncontrast head CT performed on 03/22/2025 at approximate 3 PM was reviewed. It is a persevere interpreted by me. There is residual bilateral iso to hypodense collections noted. When compared to immediate postoperative imaging studies performed
[facility], these appear to be overall stable Weakness.. There is improved brain compression when compared to preoperative MRI performed on 03/10/2025.
Assessment / Plan
-
This is an 79-year-old gentleman that presents for symptoms of left hand weakness, and is approximately 10 days status post bilateral bur hole evacuation. Postoperative CT performed yesterday at [place] emergency room demonstrates improved size
of chronic collections with no evidence of acute hemorrhage.
Symptomatology appears to be most consistent with possible focal seizure versus TIA.
Agree with neurology input, and workup including echocardiogram, EEG, possible quality assurance monitor chassis.
Resume Keppra 500 mg twice daily, after 1 g dose. This was discussed with the ED physician, Dr. Sullivan yesterday.
Patient has been initiated on aspirin.
I have advised the patient, his , to postpone the outpatient postoperative CT scan for approximately 7 to 10 days, and also his outpatient follow-up to the following week. We will plan on obtaining additional CT scan in approximately 7 to 10
days, with subsequent follow-up. I did discuss, that if imaging demonstrates persistent extra-axial/subdural collections on the repeat scan, that he may require MMA embolization.
My office will contact the patient to organize the new CT, and to reschedule the follow-up appointment.
--- NOTE | 2025-03-23 15:36 | CM ---
Patient seen bedside w/ spouse, initial assessment completed. Patient is a 79 yo man with hx TIA, HLD, ex-smoker, diagnosis of subdural hematoma 03/10 transferred to [facility] and s/p surgery 03/12 presents to the ER after a period of left hand weakness.
Patient resides w/ spouse in a single story home, 4 steps to enter. Patient is independent w/ ambulation, no device required. Independent w/ ADLs and personal care. No DME reported. No SNF/HC hx. Current w/ OP PT for neck at [facility].
Address, point of contact and insurance verified
PCP: Leena Romero
Pharmacy: [facility]
Patient admitted under obs services. ALONZO form verbally reviewed, copy provided, copy on chart
Therapy assessed, recommending OP PT
Plan: Home, resume OP PT
[2025-03-23] MEDS: FLOMAX 0.4 MG PO (17:05)
[2025-03-23] MEDS: LIPITOR 40 MG PO (17:05)
[2025-03-24 03:22] VITALS: BP 118/64
[2025-03-24 07:15] VITALS: BP 135/67
[2025-03-24] MEDS: KEPPRA 500 MG PO (07:40)
[2025-03-24] MEDS: LOW STRENGTH ASPIRIN 81 MG PO (07:40)
--- NOTE | 2025-03-24 11:17 | W.PN.NEURO.1 ---
Today's Communication / Plan
-
Replace levetiracetam 500 mg twice a day with brivaracetam 50 mg twice a day to avoid potential side effects
Continue patient's aspirin 81 mg daily; unclear as to why the patient was maintained on warfarin following a reported TIA 30 years ago
Check carotid ultrasound to ensure no carotid stenosis producing symptomatology
Check EEG for completeness
Check orthostatic blood pressures to determine why the patient had a fall
Outpatient Holter monitoring for 14 days to determine if the patient has atrial fibrillation
Neuro Assessment/Plan
Assessment
Recent fall leading to bilateral subdural hematomas and subsequent bilateral bur hole evacuations.
Patient returned with left hand sensory change while no longer on anticoagulation or antiplatelet therapy. Most likely etiology is TIA given the unilateral nature of the patient's symptoms. Differential diagnosis includes focal onset seizure
Plan
Replace levetiracetam 500 mg twice a day with brivaracetam 50 mg twice a day to avoid potential side effects
Continue patient's aspirin 81 mg daily; unclear as to why the patient was maintained on warfarin following a reported TIA 30 years ago
Check carotid ultrasound to ensure no carotid stenosis producing symptomatology
Check EEG for completeness
Check orthostatic blood pressures to determine why the patient had a fall
Outpatient Holter monitoring for 14 days to determine if the patient has atrial fibrillation
Will follow pending results
Subjective/Objective
Subjective Data
Date of Service: March 24, 2025
Objective Data
Vital Signs
Temp Pulse Resp BP Pulse Ox
36.6 C 74 16 135/67 93
03/24/25 07:15 03/24/25 07:15 03/24/25 07:15 03/24/25 07:15 03/24/25 07:15
Lab Results
03/22/25 14:17
03/23/25 05:53
PT 13.3 Sec (11.4-14.6) 03/22/25 14:18
INR 1.00 03/22/25 14:18
APTT 28.0 Sec (23.4-35.0) 03/22/25 14:18
Sodium 139 mmol/L (135-145) 03/23/25 05:53
Potassium 4.0 mmol/L (3.5-5.1) 03/23/25 05:53
BUN 8 mg/dl (9-20) L 03/23/25 05:53
Glucose 105 mg/dl (70-99) H 03/23/25 05:53
Calcium 9.1 mg/dl (8.4-10.2) 03/23/25 05:53
LDL Cholesterol, Calc 65 mg/dl 03/23/25 05:53
Patient Allergies
Influenza Virus Vaccines Allergy (Verified 08/14/23 11:15)
'I feel ill'
Data Reviewed
-
CT Head: Report Reviewed and Image Reviewed
Labs: Report Reviewed
Reviewed with: Physician and Nurse Practioner
Old Records: Summarized
[2025-03-24 11:23] VITALS: BP 138/68
--- NOTE | 2025-03-24 11:59 | EEG.RPT ---
Electroencephalogram Report
Recording
Date of EE03/24/25
Type of EEG: Routine
Length of EEG recordin minutes
Done with Video Recording: Yes
Patient Status: Inpatient
Recording Conditions: Awake, Drowsy and Asleep
Hyperventilation Performed: No
Photic Stimulation Performed: Yes
Report
LESS THAN 1 HOUR EEG REPORT
LESS THAN 1 HOUR EEG INTERPRETATION:
Likely unremarkable EEG for age
CLINICAL CORRELATION:
Although normative values not been established for a person of this advanced age, the patient�s symmetry of the background suggests that this study was unremarkable.
A normal EEG does not rule out a diagnosis of epilepsy. If clinical suspicion for seizure persists, a prolonged recording may be warranted.
Clinical correlation is advised.
METHODS:
A 21 channel digitized electroencephalogram (EEG) was performed using the 10/20 international system of electrode placement and one-lead of ECG recorded. The [employer] quantitative review system was utilized.
ELECTROENCEPHALOGRAPHER IMPRESSION(S):
Quality of study
Good
Background
There was an unremarkable anterior-posterior voltage gradient of alpha frequency.
With eye opening the background activity changed to a low voltage mixture of frequencies.
There were no significant asymmetries of background activity noted.
Sleep
Drowsiness present
Stage I sleep recorded
Stage II sleep recorded
Photic Stimulation
No driving
ECG
Normal sinus rhythm
[2025-03-24 12:51] VITALS: BP 138/68; PULSE 69
--- NOTE | 2025-03-24 14:52 | W.DCSUMMARY ---
Addendum entered and electronically signed by Evan Mcclellan, 03/24/25 16:47:
Patient will be treated with levetiracetam rather than brivaracetam due to cost issues.
Original Note:
Discharge Summary
Discharge Data
Date of Admission: 03/22/25
Date of Discharge: 03/24/25
Total time spent discharging patient (in min): 52
-
Pending Results: No
Hospital Course
Mr. Spencer is an 79-year-old male with a medical history of TIAs (unknown etiology, apparently treated with warfarin, unclear if he carries a formal diagnosis of A-fib) and recent subdural hematoma (03/10/2025, status post bur holes with
evacuation 03/12/2025) who presented due to acute onset left upper extremity weakness and numbness. His symptoms lasted less than 1 hour and have since completely resolved. His warfarin was discontinued prior to evacuation of subdural hematoma.
He was treated with Keppra for approximately 1 week postoperatively. Repeat imaging of his head neck and neurologic and neurosurgical evaluation during this admission were generally unremarkable. He will need close outpatient follow-up with his
neurosurgeon for repeat imaging. He will remain off of therapeutic anticoagulation for approximately 2 weeks until he has had follow-up imaging and evaluation with his neurosurgeon. He will be continued on antiseizure medication (brivaracetam 50
mg p.o. twice daily) and low-dose aspirin. He will need to follow-up with his primary care physician after hospital discharge for further management and to arrange for ambulatory rhythm monitoring. A message was left on the voicemail service of
this patient's primary care physician's office regarding plan of care. He was medically stable at time of hospital discharge.
General: No Apparent Distress, Comfortable and Conversant
HEENT: Surgical incisions on scalp CDI, Moist mucous membranes
Respiratory: Clear and Non Labored Respirations
Cardiac: S1/S2 and Regular Rhythm; No Rub or Gallop
GI: Soft, Non Tender, Non Distended and Normal Bowel Sounds
Musculoskeletal: No Edema, no deformity
: NO Shaikh
Neuro: Awake, Alert, Nonfocal/grossly intact
Psych: Calm and Intact Judgment/Insight
Discharge Plan
-
Patient Disposition: Home (Routine Discharge)
Discharge Diagnosis/Procedures: Left arm weakness, concern for TIA versus partial seizure
Others Tests: Outpatient ambulatory heart monitoring to evaluate for arrhythmias particularly atrial fibrillation
Activity Restrictions/Additional Instructions:
You were admitted for treatment of acute onset left arm weakness. Considering your recent subdural hematoma you were admitted for further evaluation and management. You were evaluated by neurosurgery and neurology who recommended ultrasound
imaging of your heart and blood vessels of your neck, both of which were normal. EEG was also normal. Planned postoperative CT scan will be delayed 7 to 10 days and should be obtained in the outpatient setting. You will be continued on an
antiseizure medication called brivaracetam and low-dose aspirin. You were given a dose of antiseizure medication this morning and will need to take your second dose this evening 03/24. Your home warfarin (Coumadin) will continue to be held and you
will need to follow-up with your primary care physician to set up outpatient ambulatory heart monitoring to evaluate for possible arrhythmias including atrial fibrillation.
Referrals:
Leena Romero MD [Family Provider, Internal Medicine]
Prescriptions:
New
brivaracetam 50 mg tablet
50 mg PO BID Qty: 90 0RF
aspirin 81 mg Tablet,Chewable
81 mg PO DAILY Qty: 90 0RF
Continued
atorvastatin 40 mg Tablet
40 mg PO QPM
tamsulosin 0.4 mg Capsule
0.4 mg PO QPM
PreserVision AREDS-2 250-90-40-1 mg Capsule
1 tab PO QPM
Move Free Joint Health 750 mg-100 mg- 1.65 mg-108 mg Tablet
1 tab PO DAILY
polyethylene glycol 3350 17 gram Powder In Packet
17 g PO DAILYPRN PRN (Reason: constipation)
therapeutic multivitamin Tablet
1 tab PO QPM
acetaminophen 650 mg Tablet Extended Release
650 mg PO DAILYPRN PRN (Reason: mild pain)
Centrum Silver Men
1 tab PO DAILY
Discharge Orders:
Discharge Patient (As Directed); Ordered 03/24/25
Ordered By: Evan Mcclellan
Discharge Date and Time
Print Language: SWAZI
[2025-03-24 15:15] VITALS: BP 113/70
--- NOTE | 2025-03-24 15:32 | CM ---
Patient is for discharge home today. His will provide transport. Patient and report that patient was referred to [facility] upon d/c from [facility]. [facility] is scheduled to contact him on 03/25 re intial visit. CM
contacted [facility] to notify of d/c. Referral placed in [facility]

Plan:Home with , [facility]
--- NOTE | 2025-03-24 16:50 | PTCARENOTE ---
[facility] called patient before d/c and states the out of pocket fee for Brivaracetam is $600 and wont be ready until tomorrow morning. Patient is unable to afford this medication and would like to continue Keppra as he was taking when previously
discharge from [facility]. MD Sr and MD Jaime Cha notified. Discharge medications updated. and preparing for discharge
== END 2025-03-24 17:24 | disposition home health service (06) ==
LOC: 4 WEST ACU 19:02
PROVIDERS: ADMITTING PHYSICIAN Student in an Organized Health Care Education/Training Program; ATTENDING PHYSICIAN Internal Medicine; CONSULT PHYSICIAN Neurological Surgery; CONSULT PHYSICIAN Psychiatry & Neurology Neurology; EMERGENCY PHYSICIAN Emergency Medicine; FAMILY PHYSICIAN Hospitalist
DX: R53.1 Weakness (principal); E78.5 Hyperlipidemia, unspecified; N40.0 Benign prostatic hyperplasia without lower urinary tract symptoms; Z79.899 Other long term (current) drug therapy; Z79.01 Long term (current) use of anticoagulants; Z79.82 Long term (current) use of aspirin; Z87.891 Personal history of nicotine dependence; Z86.73 Personal history of transient ischemic attack (TIA), and cerebral infarction without residual deficits
CPT/HCPCS: 70450; 80048; 80061; 83036; 83735; 84484; 85025; 85610; 85730; 92507; 92523; 92610; 93005; 93306; 93880; 95813; 95816; 96374; 97116; 97162; 97165; 99285; G0378